=== PATIENT | female | born 1990 | race Two or more races ===

== ENCOUNTER 2016-08-18 08:10 | Emergency (ER) | payer BC ==
[~2016-08-18] VITALS: Ht 167.6 cm; Wt 83.0 kg
[2016-08-18] MEDS ORDERED: IBUPROFEN 600MG TABLET PO ONE (09:00)
[2016-08-18 10:00] VITALS: BP 123/75
== END 2016-08-18 10:15 | disposition home or self-care (01) ==
LOC: ER 08:32
DX: M79.672 Pain in left foot (principal)
CPT/HCPCS: 73630; 99284